=== PATIENT | female | born 1940 | race Two or more races ===

== ENCOUNTER 2016-11-19 21:32 | Inpatient (IN) | payer MEDICARE, MEDICAID ==
[~2016-11-19] VITALS: Ht 157.5 cm; Wt 49.0 kg
--- NOTE | 2016-11-19 21:36 | NUR ---
75 YO FEMALE BB RA FROM HOME. PT IS ALERT X 3, C/O "COLON" PAIN. PT STATES SHE HAS NOT HAD A BM SINCE 11/07. PT DS TO ER BED, PT GOWNED, PLACED ONC ARDIAC MONITOR. SKIN WARM AND DRY, RR EVEN AND UNLABORED. NOTED UROSTOMY BAG, PT UNABLE TO STATES WHY SHE HAS IT IN. AWAITING ORDERS FROM PROVIDER, WILL CONTNUE TO MONITOR
--- NOTE | 2016-11-19 21:50 | NUR ---
PT IS NOTED TO BE TACHYCAREDIC IN THE 110'S. NOTIFIED
[2016-11-19] MEDS ORDERED: HYDROMORPHONE INJ 2 MG/ML DISP.SYRIN ONE ×2 (22:06→23:24)
[2016-11-19] MEDS ORDERED: ONDANSETRON HCL/PF 4 MG/2 ML VIAL ONE (22:06)
[2016-11-19] MEDS ORDERED: ONDANSETRON HCL/PF 4 MG/2 ML VIAL IVP ONE (22:30)
[2016-11-19] MEDS ORDERED: HYDROMORPHONE INJ 2 MG/ML DISP.SYRIN IV ONE (22:30)
--- NOTE | 2016-11-19 22:37 | NUR ---
22G LEFT HAND IV STARTED, BLOOD SAMPLE OBTAINED AND SENT TO LAB. MEDICATED PT ORDERED
[2016-11-19 22:40] LABS: BASOPHILS # (AUTO) 0.1 /CMM (0.0-0.2); BASOPHILS % (AUTO) 0.4 % (0.0-2.0); EOSINOPHILS # (AUTO) 0.4 /CMM (0.0-0.7); EOSINOPHILS % (AUTO) 2.2 % (0.0-6.0); HEMATOCRIT 41 % (33-45); HEMOGLOBIN 12.8 g/dL (11.5-14.8); LYMPHOCYTES % (AUTO) 10.4 % (20.0-44.0); MEAN CORPUSCULAR HEMOGLOBIN 25 PG (26.0-33.0); MEAN CORPUSCULAR HGB CONC 32 g/dl (31.0-36.0); MEAN CORPUSCULAR VOLUME 79 fL (82-100); MONOCYTES # (AUTO) 0.6 /CMM (0.1-1.30); MONOCYTES % (AUTO) 2.9 % (2.0-12.0); NEUTROPHILS # (AUTO) 16.6 /CMM (1.8-8.9); NEUTROPHILS % (AUTO) 84.1 % (43.0-81.0); PLATELET COUNT (AUTO) 328 /CMM (150-450); RDW COEFFICIENT OF VARIATION 17.5 (11.5-15.0); RED BLOOD CELL COUNT(AUTO) 5.14 MIL/uL (4.0-5.2); WHITE BLOOD COUNT (AUTO) 19.8 K/uL (4.3-11.0)
--- NOTE | 2016-11-19 23:00 | NUR ---
CALLED NURSING CLINICAL ADMINISTRATIVE COORDINATOR FOR M/S BED
[2016-11-19 23:09] LABS: APPEARANCE,URINE CLOUDY (CLEAR); BILIRUBIN,URINE NEGATIVE (NEGATIVE); BLOOD, URINE 1+ Ery/uL (NEGATIVE); COLOR,URINE YELLOW (YELLOW); KETONES,URINE NEGATIVE (NEGATIVE); LEUKOCYTE ESTERASE ,URINE 3+ (NEGATIVE); NITRITE, URINE POSITIVE (NEGATIVE); PROTEIN,URINE TRACE mg/dl (NEGATIVE); UGLUCOSE NEGATIVE (NEGATIVE); UROBILINOGEN,URINE 0.2 EU/dL (0.2)
[2016-11-19] MEDS ORDERED: HYDR-548 PO (23:15)
[2016-11-19] MEDS ORDERED: GABA-534 PO (23:15)
[2016-11-19] MEDS ORDERED: ASCO500C16 PO (23:15)
[2016-11-19] MEDS ORDERED: ZOLP10TA6 PO (23:15)
[2016-11-19] MEDS ORDERED: FURO-145 PO (23:15)
[2016-11-19] MEDS ORDERED: PANT40TA4 PO (23:15)
[2016-11-19] MEDS ORDERED: MIRT15TA7 PO (23:15)
[2016-11-19 23:16] LABS: BACTERIA,URINE 3+ /HPF (None Seen); SQUAMOUS EPITHELIAL CELL,UR Rare /HPF (None Seen); WBC,URINE 51-80 /HPF (0-3)
[2016-11-19 23:17] LABS: CALCIUM OXALATE CRYSTALS,UR Few /HPF (None Seen); URINE AMORPHOUS URATE Moderate /HPF (None Seen)
[2016-11-19 23:18] LABS: CARBON DIOXIDE 33 mmol/L (21-32); CHLORIDE 102 mmol/L (98-107); CREATININE 0.6 mg/dL (0.6-1.3); GLUCOSE 111 mg/dL (74-106); POTASSIUM 3.9 mmol/L (3.5-5.1); SODIUM SERUM 140 mmol/L (136-145); UREA NITROGEN, BLOOD 11 mg/dL (7-18)
--- NOTE | 2016-11-19 23:19 | NUR ---
LOC SNOWDEN AT BED SIDE FOR ZEKEAL
[2016-11-19 23:23] LABS: ALANINE AMINOTRANSFERASE 12 U/L (12-78); ALBUMIN 2.9 g/dL (3.4-5.0); ALKALINE PHOSPHATASE 121 U/L (46-116); ASPARTATE AMINOTRANSFERASE 23 U/L (15-37); BILIRUBIN,DIRECT 0.1 mg/dL (0.0-0.2); BILIRUBIN,TOTAL 0.2 mg/dL (0.2-1.0); LIPASE 155 U/L (73-393)
[2016-11-19 23:30] LABS: INR 3.79 (0.87-1.13); PROTHROMBIN TIME 44.1 SECS (9.5-12.7)
[2016-11-20] MEDS ORDERED: ENOXAPARIN SODIUM 40 MG/0.4 ML DISP.SYRIN SQ SCH
[2016-11-20] MEDS ORDERED: ACETAMINOPHEN 325 MG TABLET PO PRN
[2016-11-20] MEDS ORDERED: MAGNESIUM HYDROXIDE 30 ML UDC PO PRN
[2016-11-20] MEDS ORDERED: Z GUARD REMEDY 2 OZ OINT TP PRN
[2016-11-20] MEDS ORDERED: CEFTRIAXONE 1 G in IV D5W 50 ML IV ONE ×2
[2016-11-20] MEDS ORDERED: ONDANSETRON HCL/PF 4 MG/2 ML VIAL IVP PRN
[2016-11-20] MEDS ORDERED: MAG HYDROX/AL HYDROX/SIMETH 30 ML UDC PO PRN
[2016-11-20] MEDS ORDERED: HYDROMORPHONE 1 MG/1 ML DISP.SYRIN IV ONE
[2016-11-20] MEDS ORDERED: HYDROCODONE/APAP 5/325MG 1 EACH TABLET PO PRN
[2016-11-20] MEDS ORDERED: IV SET PRIMARY PUMP SET 1 EA INFUS.SET MC ONE ×2 (00:21→04:56)
[2016-11-20] MEDS ORDERED: CEFTRIAXONE 1GM BAG (ER ONLY) 50 ML IV ONE (00:21)
[2016-11-20 00:46] VITALS: BP 105/67
--- NOTE | 2016-11-20 00:46 | NUR ---
SPECIMEN PREPARATION ASSISTANT INITIAL NOTES PT WAS BROUGHT TO THE FLOOR FROM THE ER VIA GURNEY. PT IS A/O X4, ABLE TO COMMUNICATE NEEDS, DENIES ANY PAIN. ON NC 2.5L SATING AT 98%. NO SIGNS OF DISTRESS OR SOB. IV ACCESS ON LEFT MIDDLE FINGER #20. UROSTOMY BAD ON RIGHT SIDE. PT STATES SHE HAS BEEN BED BOUND FOR 3 YRS, IS ABLE TO FEED HERSELF. BED IS IN LOW AND LOCKED POSITION, CALL LIGHT WITHIN REACH. WILL CONTINUE TO MONITOR.
[2016-11-20] MEDS ORDERED: MINERAL OIL 133 ML (PYXIS) 1 EA ENEMA RC ONE ×4 (01:00→21:00)
--- NOTE | 2016-11-20 01:20 | NUR ---
SLEEPING AID PT STATED THAT HAS NOT BEEN ABLE TO SLEEP AND REQUESTED A SLEEPING AID. AMBIEN WAS ADMINISTERED.
[2016-11-20] MEDS ORDERED: ZOLPIDEM TARTRATE 5 MG TABLET ONE (01:32)
[2016-11-20] MEDS ORDERED: ENOXAPARIN SODIUM 40 MG/0.4 ML DISP.SYRIN SQ ONE (01:32)
--- NOTE | 2016-11-20 01:40 | NUR ---
WOUND CARE SACRAL WOUND PRESSURE ULCERS, CLEANSED WITH NS, PAT DRY, APPLIED MEPILEX AND OFFLOADED. PICTURES WERE TAKEN AND PLACED IN CHART
[2016-11-20] MEDS: ZOLPIDEM TARTRATE 5 MG TABLET PO PRN ×2 (01:42→22:26)
[2016-11-20 04:31] VITALS: BP 120/69
[2016-11-20] MEDS ORDERED: IV NS 0.9% 1,000 ML ONE (04:56)
[2016-11-20] MEDS: IV NS 0.9% 1,000 ML IV PRN (05:16)
--- NOTE | 2016-11-20 05:30 | NUR ---
ENEMA ENEMA WAS ATTEMPTED. PT WAS UNABLE TO HOLD ENEMA IN. WILL CONTACT MD FOR ALTERNATIVE
--- NOTE | 2016-11-20 06:43 | NUR ---
DAUGHTER CALLED. SHE WAS REQUESTING AN UPDATED AND WOULD LIKE TO BE UPDATED WITH PLAN OF CARE. OVIDIO FREY [phone]
--- NOTE | 2016-11-20 06:44 | NUR ---
SUPERVISOR GRIPS CLOSING NOTES PT IS IN BED SLEEPING, BREATHING IS EVEN AND UNLABORED. WOUNDS WERE REDRESSED POST ENEMA. PT IS ON 2.5L O2 SATING AT 98%. BED IS IN LOW AND LOCKED POSITION, CALL LIGHT IS WITHIN REACH. AWAITING CONSULTS WILL ENDORSE TO DAY SHIFT.
[2016-11-20 07:03] LABS: BASOPHILS % (AUTO) 0.4 % (0.0-2.0); EOSINOPHILS # (AUTO) 0.3 /CMM (0.0-0.7); EOSINOPHILS % (AUTO) 2.4 % (0.0-6.0); HEMATOCRIT 37 % (33-45); HEMOGLOBIN 11.9 g/dL (11.5-14.8); LYMPHOCYTES # (AUTO) 2.7 /CMM (0.8-4.8); LYMPHOCYTES % (AUTO) 19.6 % (20.0-44.0); MEAN CORPUSCULAR HEMOGLOBIN 26 PG (26.0-33.0); MEAN CORPUSCULAR HGB CONC 32 g/dl (31.0-36.0); MEAN CORPUSCULAR VOLUME 80 fL (82-100); MONOCYTES # (AUTO) 0.8 /CMM (0.1-1.30); MONOCYTES % (AUTO) 6.2 % (2.0-12.0); NEUTROPHILS # (AUTO) 9.8 /CMM (1.8-8.9); NEUTROPHILS % (AUTO) 71.4 % (43.0-81.0); PLATELET COUNT (AUTO) 297 /CMM (150-450); RDW COEFFICIENT OF VARIATION 17.5 (11.5-15.0); RED BLOOD CELL COUNT(AUTO) 4.66 MIL/uL (4.0-5.2); WHITE BLOOD COUNT (AUTO) 13.7 K/uL (4.3-11.0)
[2016-11-20 07:22] LABS: CALCIUM, SERUM 8.9 mg/dL (8.5-10.1); CARBON DIOXIDE 34 mmol/L (21-32); CHLORIDE 102 mmol/L (98-107); CREATININE 0.6 mg/dL (0.6-1.3); GLUCOSE 104 mg/dL (74-106); MAGNESIUM 1.8 mg/dL (1.8-2.4); PHOSPHORUS 3.6 mg/dL (2.5-4.9); SODIUM SERUM 140 mmol/L (136-145); UREA NITROGEN, BLOOD 10 mg/dL (7-18)
[2016-11-20 07:26] VITALS: BP 106/70
[2016-11-20 07:33] LABS: CHOLESTEROL 249 mg/dL (<200); HDL CHOLESTEROL 41 mg/dL (40-60); LDL 169 mg/dL (0-99); THYROID STIMULATING HORMONE 0.794 uIU/mL (0.358-3.74); TRIGLYCERIDES 235 mg/dL (30-150)
[2016-11-20 08:00] VITALS: BP 106/70
--- NOTE | 2016-11-20 08:00 | NUR ---
TELE/RN AM SHIFT INITIAL NOTES RECEIVED PT AWAKE IN BED, NO ACUTE CHANGE OF CONDITION, PT A/O X 4, DENIES ANY DISCOMFORT. ON 2.5 LITER OF O2 VIA N/C SATURATING @ 97%, LUNG SOUNDS CLEAR. ON TELE WITH SINUS RHYTHM, HR 89. PT REFUSED TO BE ASSESSES AT THIS TIME. WITH ON GOING IV INFUSION OF NS @ 75CC/HR, IV SITE PATENT WITH NO S/S OF INFECTION. PT IS COMFORTABLE AT THIS TIME. SCHEDULED AM MEDS TO BE GIVEN. CL WITHIN REACHED AND SAFETY MAINTAINED. ON GOING MONITORING.
[2016-11-20 08:20] LABS: INR 3.52 (0.87-1.13); PROTHROMBIN TIME 39.1 SECS (9.5-12.7)
[2016-11-20] MEDS ORDERED: SECONDARY IV SET 1 EA INFUS.SET MC ONE (09:01)
[2016-11-20] MEDS: PANTOPRAZOLE 40 MG TABLET.DR PO SCH (09:10)
[2016-11-20] MEDS: CEFTRIAXONE 1 G in IV D5W 50 ML IV SCH (09:10)
[2016-11-20] MEDS: ASCORBIC ACID 500 MG TABLET PO SCH (09:10)
[2016-11-20] MEDS: FUROSEMIDE 20 MG TABLET PO SCH (09:10)
[2016-11-20] MEDS: GABAPENTIN 300 MG CAPSULE PO SCH ×3 (09:10→17:48)
--- NOTE | 2016-11-20 10:30 | NUR ---
TELE/RN ROUNDS - DR. SPIVEY PT SEEN & EXAMINED BY DR. SPIVEY. NO NEW ORDERS RECEIVED AT THIS TIME. MONITORING CONTINUED.
--- NOTE | 2016-11-20 11:50 | NUR ---
WOUND CARE CONSULT: SPOKE WITH PT'S RN WHO STATED THAT ALL SKIN AND WOUND ORDERS TO BE WRITTEN BY DR HURLEY. DEFER TO SURGICAL TEAM FOR TREATMENT PLAN. PT ON NEFTALY ISOFLEX LOW AIRLOSS BED. WILL SEE PRN.
[2016-11-20] MEDS ORDERED: MINERAL OIL/PETROL OINT 396 GM JAR TP PRN (13:30)
--- NOTE | 2016-11-20 14:54 | NUR ---
MS/RN DISIMPACTED DISIMPACTED PT WITH LARGE AMOUNTS OF HARD FORMED FECAL MATTER. PT TOLERATED PROCEDURE. PT RESTING COMFORTABLY.
[2016-11-20 16:00] VITALS: BP 137/66
--- NOTE | 2016-11-20 16:21 | NUR ---
cement storage worker met with patient at bedside. Patient was oriented to place, self, and situation. Patient stated that she lives home with [place] [address]. ([phone]). Patient would like to return home with her daughter Rafaela Mohr. ([phone]). Per patient she is and has three daughters. Patient's Phoenix Ramesh ([phone]) is patient's salesperson furs. Patient stated that she receives SSI ($641/month). Per patient, no hx of drug or alcohol abuse. Patient denied visual and auditory hallucinations. Patient denied suicidal and homicidal ideations. Per patient, no hx of psychiatric hospitalizations. executive secretary social welfare spoke to patient's daughter Rafaela Mohr. ([phone]) who confirmed that patient can return home upon discharge. cement storage worker informed patient that she is available if needed.
[2016-11-20] MEDS: MIRTAZAPINE 15 MG TABLET PO SCH (17:48)
[2016-11-20] MEDS: HYDROCODONE/APAP 10/325MG 1 EA TABLET PO PRN (17:57)
--- NOTE | 2016-11-20 18:00 | NUR ---
MS/RN ROUNDS PM CARE PROVIDED. NO ACUTE CHANGE OF CONDITION. COOLING MEASURES ON GOING. TEMP CHECKED NOW 98.4 ORAL. MONITORING CONTINUED.
--- NOTE | 2016-11-20 19:16 | NUR ---
MS/RN AM SHIFT END NOTES ALL NEEDS MET. NO ACUTE CHANGE OF CONDITION DURING THE SHIFT. PT ENDORSED TO PM NURSE TO CONTINUE CARE. CL WITHIN REACHED AND SAFETY MAINTAINED.
--- NOTE | 2016-11-20 19:30 | NUR ---
TRIAGE CLINICIAN NOTE: PATIENT RESTING IN BED, NO ACUTE DISTRESS NOTED. BREATHING EVEN AND UNLABORED, NO SOB NOTED. UROSTOMY BAG IN PLACE, EMPTY AT THIS TIME. BED LOCKED AND IN LOWEST POSITION, CALL LIGHT IN REACH. WILL CONTINUE TO MONITOR.
[2016-11-20 20:00] VITALS: BP 100/49
[2016-11-20] MEDS ORDERED: MAGNESIUM CITRATE 296 ML BOTTLE PO ONE (21:00)
--- NOTE | 2016-11-20 22:30 | NUR ---
MS RN NOTE: PATIENT REQUESTING FOR SLEEPING MEDICATIONS, AMBIEN 5MG ORAL GIVEN PER MD ORDER. WILL CONTINUE TO MONITOR.
[2016-11-21] MEDS: IV NS 0.9% 1,000 ML IV PRN (03:56)
--- NOTE | 2016-11-21 06:05 | NUR ---
MS RN NOTE: PATIENT RESTING IN BED, NO ACUTE DISTRESS NOTED. BREATHING EVEN AND UNLABORED, NO SOB NOTED. UROSTOMY BAG IN PLACE. BED LOCKED AND IN LOWEST POSITION, CALL LIGHT IN REACH. WILL ENDORSE TO DAY NURSE TO CONTINUE WITH PLAN OF CARE.
[2016-11-21 07:08] LABS: BASOPHILS # (AUTO) 0.1 /CMM (0.0-0.2); BASOPHILS % (AUTO) 0.6 % (0.0-2.0); EOSINOPHILS # (AUTO) 0.8 /CMM (0.0-0.7); EOSINOPHILS % (AUTO) 8.1 % (0.0-6.0); HEMATOCRIT 34 % (33-45); HEMOGLOBIN 10.9 g/dL (11.5-14.8); LYMPHOCYTES # (AUTO) 2.1 /CMM (0.8-4.8); LYMPHOCYTES % (AUTO) 20.8 % (20.0-44.0); MEAN CORPUSCULAR HEMOGLOBIN 26 PG (26.0-33.0); MEAN CORPUSCULAR HGB CONC 32 g/dl (31.0-36.0); MEAN CORPUSCULAR VOLUME 81 fL (82-100); MONOCYTES # (AUTO) 0.7 /CMM (0.1-1.30); MONOCYTES % (AUTO) 7.1 % (2.0-12.0); NEUTROPHILS # (AUTO) 6.5 /CMM (1.8-8.9); NEUTROPHILS % (AUTO) 63.4 % (43.0-81.0); PLATELET COUNT (AUTO) 288 /CMM (150-450); RDW COEFFICIENT OF VARIATION 17.6 (11.5-15.0); RED BLOOD CELL COUNT(AUTO) 4.21 MIL/uL (4.0-5.2); WHITE BLOOD COUNT (AUTO) 10.3 K/uL (4.3-11.0)
[2016-11-21 07:25] LABS: INR 3.09 (0.87-1.13); PROTHROMBIN TIME 35.5 SECS (9.5-12.7)
--- NOTE | 2016-11-21 07:30 | NUR ---
MS RN AM NOTES RECEIVED PT AWAKE IN BED, ORIENTEDX4, ON 2.5L O2 VIA NC, O2 SAT 98%, NOT IN ANY DISTRESS, RESPIRATION UNLABORED, DENIES ANY PAIN OR DISCOMFORT, ON GOING IV INFUSION OF NS @ 75CC/HR TO L MIDDLE FINGER, SITE CLEAR. UROSTOMY IN PLACE, SEE NURSING FLOWSHEET FOR SKIN ISSUES, ON CCHO DIET, BEDREST, CALL LIGHT WITH IN REACH, BED LOW LOCKED, SR UP. WILL CONTINUE TO MONITOR.
[2016-11-21 07:47] LABS: CALCIUM, SERUM 8.4 mg/dL (8.5-10.1); CHLORIDE 107 mmol/L (98-107); CREATININE 0.5 mg/dL (0.6-1.3); GLUCOSE 90 mg/dL (74-106); POTASSIUM 3.9 mmol/L (3.5-5.1); SODIUM SERUM 144 mmol/L (136-145); UREA NITROGEN, BLOOD 8 mg/dL (7-18)
[2016-11-21 07:53] LABS: CARBON DIOXIDE 32 mmol/L (21-32)
[2016-11-21 08:00] VITALS: BP 119/56
[2016-11-21] MEDS: PANTOPRAZOLE 40 MG TABLET.DR PO SCH (08:27)
[2016-11-21] MEDS: FUROSEMIDE 20 MG TABLET PO SCH (08:27)
[2016-11-21] MEDS: GABAPENTIN 300 MG CAPSULE PO SCH ×3 (08:27→17:21)
[2016-11-21] MEDS: ASCORBIC ACID 500 MG TABLET PO SCH (08:27)
--- NOTE | 2016-11-21 09:30 | NUR ---
MS RN NOTE ADMINISTERED DUE MEDS.
--- NOTE | 2016-11-21 09:41 | NUR ---
MS RN NOTES STARTED ROCEPHIN IV.
[2016-11-21] MEDS: CEFTRIAXONE 1 G in IV D5W 50 ML IV SCH (09:54)
[2016-11-21] MEDS ORDERED: HYDROGEL DRESSING 90 GM TUBE TP PRN (10:30)
[2016-11-21] MEDS: HYDROGEL DRESSING 90 GM TUBE TP SCH (10:43)
[2016-11-21] MEDS: HYDROCODONE/APAP 10/325MG 1 EA TABLET PO PRN ×2 (12:37→20:49)
[2016-11-21 16:00] VITALS: BP 104/57
[2016-11-21] MEDS: MIRTAZAPINE 15 MG TABLET PO SCH (17:21)
[2016-11-21 18:00] VITALS: BP 104/57
--- NOTE | 2016-11-21 18:24 | NUR ---
MS RN CLOSING NOTES PT IN BED, AWAKE, ORIENTEDX4, ON 2.5L O2 VIA NC, O2 SAT 96%, NOT IN ANY DISTRESS, RESPIRATION UNLABORED, DENIES ANY PAIN OR DISCOMFORT, PICC LINE NURSE AT BEDSIDE ONGOING MIDLINE INSERTION, IV INFUSION OF NS @ 75CC/HR ONCE MIDLINE AVAILABLE, UROSTOMY IN PLACE, 500 ML OUTPUT. ON CCHO DIET, BEDREST, CALL LIGHT WITH IN REACH, BED LOW LOCKED, SR UP. TURNED AND REPOSITIONED. ALL NEEDS MET. NO OTHER SIGNIFICANT CHANGE IN CONDITION. WILL ENDORSE TO NEXT SHIFT FOR AMADOR.
--- NOTE | 2016-11-21 19:30 | NUR ---
RN NOTE; RECEIVED PT IN BED W/ FAMILY AT THE BED SIDE. BREATHING EVENLY. NO SOB. NAD. NO COUGH. SKIN WARM AND DRY, PT WAS CONNECTED TO IVF HYDRATIONS. NEEDS ATTENDED. PT REPORTED ALREADY HAD A BM AND RELIEF OF CONSTIPATIONS. CALL LIGHT WITHIN REACH. WILL CONT TO MONITOR .
[2016-11-21 20:00] VITALS: BP 105/50
[2016-11-21] MEDS ORDERED: KEY,NONCONTROL,TO KEEP IN PYXI 1 EA MC ONE (20:08)
[2016-11-21] MEDS: MUPIROCIN OINT 2% 22 GM TUBE SCH (20:49)
--- NOTE | 2016-11-21 20:50 | NUR ---
[id number] GIVEN ORDERED PER PT'S REQUEST FOR SEVERE GEN. BODY PAIN. WILL CONT TO MONITOR
--- NOTE | 2016-11-21 22:00 | NUR ---
UROSTOMY BAG WAS REPLACED DUE TO LEAKING . WILL CONT TO MONITOR
[2016-11-21] MEDS: ZOLPIDEM TARTRATE 5 MG TABLET PO PRN (22:15)
--- NOTE | 2016-11-21 22:15 | NUR ---
DELIAIEN GIVEN ORDERED PER PT'S REQUEST FOR C/O INSOMNIA, WILL CONT TO MONITOR
--- NOTE | 2016-11-22 00:45 | NUR ---
PT IS REQUESTING A REPEATED DOSE OF AMBIEN FOR INSOMNIA. DR. EVANGELISTA ON THE FLOOR MADE AWARE W/ A NEW ORDER FOR A SECOND DOSE OF AMBIEN 5MG . NEW ORDER NOTED .
--- NOTE | 2016-11-22 00:52 | NUR ---
REPEATED DOSE OF AMBIEN GIVEN ORDERED PER PT'S REQUEST ORDERED. WILL CONT TO MONITOR
[2016-11-22] MEDS ORDERED: ZOLPIDEM TARTRATE 5 MG TABLET PO ONE (01:00)
--- NOTE | 2016-11-22 06:51 | NUR ---
RN NOTE; PT IN BED AWAKE AND ALERT. BREATHING EVENLY. NO SOB. NAD. SKIN WARM AND DRY. NO C/O PAIN OR DISCOMFORT AT THIS TIME. NO ABD PAIN. ON ONGOING UVF HYDRATION LIZET WELL. NEEDS ATTENDED .ASSISTED W/ ADLS. CALL LIGHT WITHIN REACH .WILL CONT TO MONITOR AND WILL ENDORSE TO AM SHIFT FOR AMADOR,
--- NOTE | 2016-11-22 07:30 | NUR ---
RN NOTES RECEIVED PATIENT IN BED SLEEPING, AROUSES EASILY. ALERT AND ORIENTED X3. RESPIRATIONS EVEN AND UNLABORED. NO ACUTE DISTRESS, NO SOB NOTED. IV SITE INTACT AND PATENT. KEPT PATIENT SAFE. BED IN LOWEST POSITION, SIDERAILS UP X2. CALL LIGHT WITHIN REACH. WILL CONTINUE TO MONITOR ACCORDINGLY.
[2016-11-22 08:00] VITALS: BP_SYST 128; BP_DIAS 69; BP_DIAS 70
[2016-11-22] MEDS: ASCORBIC ACID 500 MG TABLET PO SCH (09:05)
[2016-11-22] MEDS: FUROSEMIDE 20 MG TABLET PO SCH (09:05)
[2016-11-22] MEDS: PANTOPRAZOLE 40 MG TABLET.DR PO SCH (09:05)
[2016-11-22] MEDS: GABAPENTIN 300 MG CAPSULE PO SCH ×3 (09:06→18:17)
[2016-11-22] MEDS: MUPIROCIN OINT 2% 22 GM TUBE SCH ×2 (09:07→20:49)
[2016-11-22] MEDS: HYDROGEL DRESSING 90 GM TUBE TP SCH (09:11)
[2016-11-22] MEDS: CEFTRIAXONE 1 G in IV D5W 50 ML IV SCH (10:13)
[2016-11-22] MEDS: HYDROCODONE/APAP 10/325MG 1 EA TABLET PO PRN ×3 (13:40→22:55)
[2016-11-22 16:00] VITALS: BP 107/54
[2016-11-22] MEDS: MIRTAZAPINE 15 MG TABLET PO SCH (18:17)
--- NOTE | 2016-11-22 19:00 | NUR ---
RN NOTES PATIENT IN BED RESTING. NO CHANGE OF CONDITION, NO ACUTE DISTRESS, NO SOB NOTED. DENIES PAIN OR DISCOMFORT. ALL NEEDS ATTENDED AND PROVIDED. KEPT PATIENT SAFE. BED IN LOWEST POSITION, SIDERAILS UP X2, CALL LIGHT WITHIN REACH. ENDORSED TO WOMEN'S MINISTRY DIRECTOR RN FOR CONTINUITY OF CARE.
--- NOTE | 2016-11-22 19:30 | NUR ---
RN NOTE; RECEIVED PT IN BED W/ FAMILY aT THE BED SIDE. BREATHING EVENLY. NO SOB. NO ACUTE DISTRESS. W/ C/O CHRONIC GENERALIZED BODY PAIN . NO ABD PAIN. ON ONGOING IVF HYDRATION. NEEDS ATTENDED .REPOSITIONED THE PT. BED LOW LOCKED. CALL LIGHT WITHIN REACH. WILL CONT TO MONITOR
[2016-11-22 20:00] VITALS: BP 107/61
[2016-11-22] MEDS: ZOLPIDEM TARTRATE 5 MG TABLET PO PRN (22:55)
--- NOTE | 2016-11-22 23:00 | NUR ---
NORCO 10 GIVEN ORDERED PER PT'S REQUEST FOR C/O GENERALIZED BODY PAIN. ALSO AMBIEN 5MG GIVEN ORDERED FOR C/O INSOMNIA. RISK VS BENEFITS OF TAKING THE TWO MEDICATIONS TOGETHER AND AT THE SAME TIME GIVEN TO THE PT . PT WAS ASSISTED W/ REPOSITIONING AND CALM AND COMFORTABLE ENVIRONMENT WAS PROVIDED FOR THE PT. WILL CONT TO MONITOR,
--- NOTE | 2016-11-23 06:22 | NUR ---
RN NOTE; PT IN BED SLEEPING, AROUSES EASILY. BREATHING EVENLY. NO SOB, NAD. NO S/S OR C/O PAIN OR DISCOMFORT. NO ACUTE EVENT DURING THE NIGHT. REMAINED STABLE. NEEDS ATTENDED. BED LOW LOCKED. CALL LIGHT WITHIN REACH. WILL CONT TO MONITOR AND WILL ENDORSE TO AM SHIFT FOR AMADOR,
--- NOTE | 2016-11-23 07:50 | NUR ---
MS RN OPENING NOTE PATIENT IS ALERT AND ORIENTED x4. NO PAIN AT THIS TIME. NO SOB OR DISTRESS NOTED. CALL LIGHT WITHIN REACH. SAFETY MEASURES IMPLEMENTED. IV INTACT AND PATENT NO REDNESS OR SWELLING NOTED. ABLE TO COMMUNICATE NEEDS. ON CONTACT ISOLATION FOR MRSA OF NARES. POSSIBLE DISCHARGE TODAY, WILL FOLLOW UP WITH CASE MANAGEMENT. WILL CONTINUE TO MONITOR
[2016-11-23 08:00] VITALS: BP 132/79
[2016-11-23] MEDS: ASCORBIC ACID 500 MG TABLET PO SCH (08:32)
[2016-11-23] MEDS: FUROSEMIDE 20 MG TABLET PO SCH (08:32)
[2016-11-23] MEDS: PANTOPRAZOLE 40 MG TABLET.DR PO SCH (08:32)
[2016-11-23] MEDS: GABAPENTIN 300 MG CAPSULE PO SCH ×3 (08:32→17:00)
[2016-11-23] MEDS: HYDROGEL DRESSING 90 GM TUBE TP SCH (08:33)
[2016-11-23] MEDS: MUPIROCIN OINT 2% 22 GM TUBE SCH (08:33)
[2016-11-23] MEDS: HYDROCODONE/APAP 10/325MG 1 EA TABLET PO PRN ×2 (08:45→13:53)
[2016-11-23] MEDS ORDERED: LEVO500T15 PO (10:16)
[2016-11-23] MEDS ORDERED: WARF2TAB6 PO (10:21)
[2016-11-23] MEDS: CEFTRIAXONE 1 G in IV D5W 50 ML IV SCH (11:14)
[2016-11-23] MEDS: IV NS 0.9% 1,000 ML IV PRN (11:24)
[2016-11-23 16:00] VITALS: BP 118/68
--- NOTE | 2016-11-23 16:16 | NUR ---
MS RN NOTE GAVE REPORT TO ISIDRA CRUZ ANDROID IOS DEVELOPER AT [facility]. AWAITING FOR TRANSPORT
--- NOTE | 2016-11-23 18:00 | NUR ---
MS ADOBE MAKER NOTE PATIENT IS ALERT AND ORIENTED x4. NO PAIN AT THIS TIME. NO SOB OR DISTRESS NOTED. CALL LIGHT WITHIN REACH AT ALL TIMES. SAFETY MEASURES IMPLEMENTED. ABLE TO COMMUNICATE NEEDS. IV REMOVED, SKIN INTACT. ALL WOUND PICTURES TAKEN AND DOCUMENTED. GAVE REPORT TO NANCY AT [facility]. GAVE PATIENT, RN MOLD BURNER AND PATIENT FAMILY DISCHARGE INSTRUCTIONS, ALL GAVE VERBAL READ BACK DEMONSTRATION. ALL BELONGINGS WITH DAUGHTER, ELEANOR AND ALEAH. LEFT VIA AMBULANCE WITH TWO SENIOR ENERGY CONSULTANT
== END 2016-11-23 17:45 | DRG 871 ==
LOC: ER 21:33 → TELE 11-20 00:09 → MED 11-20 11:00
PROVIDERS: ADMIT Nurse Practitioner Acute Care; ATTEND Nurse Practitioner Acute Care
PROC: 05H633Z Insertion of Infusion Device into Left Subclavian Vein, Percutaneous Approach (ICD-10-PCS; principal; 2016-11-21)
DX: A41.9 Sepsis, unspecified organism (principal); L89.153 Pressure ulcer of sacral region, stage 3; E43 Unspecified severe protein-calorie malnutrition; D68.59 Other primary thrombophilia; N39.0 Urinary tract infection, site not specified; G95.89 Other specified diseases of spinal cord; Z68.1 Body mass index [BMI] 19.9 or less, adult; B96.1 Klebsiella pneumoniae [K. pneumoniae] as the cause of diseases classified elsewhere; F32.9 Major depressive disorder, single episode, unspecified; G89.4 Chronic pain syndrome; I10 Essential (primary) hypertension; Z79.01 Long term (current) use of anticoagulants; Z86.718 Personal history of other venous thrombosis and embolism; Z74.01 Bed confinement status; M81.0 Age-related osteoporosis without current pathological fracture; Z90.6 Acquired absence of other parts of urinary tract; Z93.6 Other artificial openings of urinary tract status; E88.09 Other disorders of plasma-protein metabolism, not elsewhere classified; J84.112 Idiopathic pulmonary fibrosis; Z99.81 Dependence on supplemental oxygen; K52.89 Other specified noninfective gastroenteritis and colitis; L98.8 Other specified disorders of the skin and subcutaneous tissue; Z79.891 Long term (current) use of opiate analgesic; L30.4 Erythema intertrigo; K59.03 Drug induced constipation; T40.605A Adverse effect of unspecified narcotics, initial encounter; Y92.009 Unspecified place in unspecified non-institutional (private) residence as the place of occurrence of the external cause
CPT/HCPCS: 36415; 71010-TC; 72128-TC; 80048-TC; 80061-TC; 80076-TC; 81000-TC; 83605-TC; 83690-TC; 83735-TC; 84100-TC; 84443-TC; 85025-TC; 85610-TC; 85730-TC; 87040-TC; 87081-TC; 87086-TC; 87186-TC; 94799-TC; 97001-TC; A4606; A6248; A6253; A6402; J0696; J1170; J1650; J2405; J7030; J7060; Z7610

== ENCOUNTER 2017-05-15 12:24 | Inpatient (IN) | payer MEDICARE, MEDICAID ==
[~2017-05-15] VITALS: Ht 157.5 cm; Wt 55.3 kg
[~2017-05-15 12:24] MED LIST: ASCO500C16 PO; FURO-145 PO; GABA-534 PO; HYDR-548 PO; LEVO500T75 PO; MIRT15TA7 PO; PANT40TA4 PO; WARF2TAB6 PO; ZOLP10TA6 PO
--- NOTE | 2017-05-15 12:30 | NUR ---
AAOX3, [id number] FROM HOME FOR SOB, O2 SAT 87% WITH NC AT HOME. RR IS SLIGHTLY LABORED. SKIN IS WARM AND DRY. PLACED ON THE MONITOR. WILL CONTINUOUSLY MONITOR THE PATIENT. AWAITING MD FOR EVAL.
[2017-05-15 13:07] LABS: BASOPHILS # (AUTO) 0.1 /CMM (0.0-0.2); BASOPHILS % (AUTO) 0.6 % (0.0-2.0); EOSINOPHILS # (AUTO) 0.9 /CMM (0.0-0.7); EOSINOPHILS % (AUTO) 6.4 % (0.0-6.0); HEMATOCRIT 36 % (33-45); HEMOGLOBIN 11.6 g/dL (11.5-14.8); LYMPHOCYTES # (AUTO) 3.2 /CMM (0.8-4.8); LYMPHOCYTES % (AUTO) 21.7 % (20.0-44.0); MEAN CORPUSCULAR HEMOGLOBIN 26 PG (26.0-33.0); MEAN CORPUSCULAR HGB CONC 32 g/dl (31.0-36.0); MEAN CORPUSCULAR VOLUME 81 fL (82-100); MONOCYTES # (AUTO) 0.5 /CMM (0.1-1.30); MONOCYTES % (AUTO) 3.7 % (2.0-12.0); NEUTROPHILS # (AUTO) 10.1 /CMM (1.8-8.9); NEUTROPHILS % (AUTO) 67.6 % (43.0-81.0); PLATELET COUNT (AUTO) 266 /CMM (150-450); RDW COEFFICIENT OF VARIATION 17.5 (11.5-15.0); RED BLOOD CELL COUNT(AUTO) 4.43 MIL/uL (4.0-5.2); WHITE BLOOD COUNT (AUTO) 14.8 K/uL (4.3-11.0)
[2017-05-15 13:16] LABS: CALCIUM, SERUM 8.4 mg/dL (8.5-10.1); CARBON DIOXIDE 30 mmol/L (21-32); CHLORIDE 108 mmol/L (98-107); CREATININE 0.5 mg/dL (0.6-1.3); GLUCOSE 114 mg/dL (74-106); POTASSIUM 3.7 mmol/L (3.5-5.1); SODIUM SERUM 142 mmol/L (136-145); UREA NITROGEN, BLOOD 11 mg/dL (7-18)
[2017-05-15 13:21] LABS: INR 0.9 (0.87-1.13)
[2017-05-15 13:24] LABS: TROPONIN I < 0.017 ng/mL (0.00-0.056)
[2017-05-15] MEDS ORDERED: CALC-883 PO (13:34)
[2017-05-15] MEDS ORDERED: CODE118S2 PO (13:34)
[2017-05-15] MEDS ORDERED: CLOT10TR PO (13:34)
[2017-05-15] MEDS ORDERED: PRED10TA PO (13:34)
[2017-05-15] MEDS ORDERED: BISA10SU8 RC (13:34)
[2017-05-15] MEDS ORDERED: ZOLP5TAB8 PO (13:34)
[2017-05-15] MEDS ORDERED: HYDR-548 PO (13:34)
[2017-05-15] MEDS ORDERED: GABA-534 PO (13:34)
[2017-05-15 13:40] LABS: ALANINE AMINOTRANSFERASE 9 U/L (12-78); ALBUMIN 2.4 g/dL (3.4-5.0); ALKALINE PHOSPHATASE 88 U/L (46-116); ASPARTATE AMINOTRANSFERASE 14 U/L (15-37); B-TYPE NATRIURETIC PEPTIDE 105 PG/ML (0-125); BILIRUBIN,TOTAL 0.3 mg/dL (0.2-1.0); TOTAL PROTEIN, SERUM 6.5 g/dL (6.4-8.2)
[2017-05-15] MEDS ORDERED: PIPERACILLIN /TAZOBACTAM 3.375 G in IV D5W 50 ML IV ONE (14:30)
[2017-05-15] MEDS ORDERED: LEVOFLOXACIN 750 MG /D5W 150ML 150 ML IV ONE ×2 (14:30→14:47)
--- NOTE | 2017-05-15 15:15 | NUR ---
IT SYSTEMS ANALYST CONSULTANTFASHION CONSULTANT SELLING NOTE PATIENT IS ALERT AND ORIENTED x3. NO PAIN AT THIS TIME. NO SOB OR DISTRESS NOTED. CALL LIGHT WITHIN REACH. SAFETY MEASURES IMPLEMENTED. ABLE TO COMMUNICATE NEEDS. SKIN ISSUES PRESENT ON BILATERAL BREAST REDNESS, AND SACRAL WOUND EXCORIATION/PARTIAL THICKNESS LOSS. HAS IV ON RIGHT FOREARM 22G AND GARCIA MIDLINE INTACT AND PATENT NO REDNESS OR SWELLING NOTED. NO FLUIDS RUNNING AT THIS TIME. BROUGHT INTO ER FOR SOB FOR MORE THAN 3 DAYS, PATIENT IS USUALLY ON OXYGEN AT HOME. RULING OUT PNA. WILL GIVE PNA VACCINE PER PATIENT REQUEST. WILL CONTINUE TO MONITOR
[2017-05-15 15:30] VITALS: BP 99/62
[2017-05-15] MEDS ORDERED: ONDANSETRON HCL/PF 4 MG/2 ML VIAL IVP PRN (15:30)
[2017-05-15] MEDS ORDERED: ACETAMINOPHEN 325 MG TABLET PO PRN (15:30)
[2017-05-15] MEDS ORDERED: MAGNESIUM HYDROXIDE 30 ML UDC PO PRN (15:30)
[2017-05-15] MEDS ORDERED: Z GUARD REMEDY 2 OZ OINT TP PRN (15:30)
[2017-05-15] MEDS ORDERED: HYDROCODONE/APAP 5/325MG 1 EACH TABLET PO PRN (15:30)
[2017-05-15] MEDS ORDERED: PNEUMOCOCCAL 23-VAL P-SAC VAC 0.5 ML VIAL SQ ONE (16:30)
[2017-05-15] MEDS: ENOXAPARIN SODIUM 40 MG/0.4 ML DISP.SYRIN SQ SCH (16:56)
--- NOTE | 2017-05-15 18:45 | NUR ---
RN NOTE UNABLE TO OBTAIN BLOOD SPECIMEN FOR LAB AT THIS TIME. WILL ENDORSE TO HAND MOUNTER NURSE
--- NOTE | 2017-05-15 18:53 | NUR ---
MANAGER BUSINESS PLANNING CLOSING NOTE PATIENT IS ALERT AND ORIENTED x3. NO PAIN AT THIS TIME. NO SOB OR DISTRESS NOTED ON 2L/MIN OF OXYGEN VIA NASAL CANNULA, TOLERATING WELL. CALL LIGHT WITHIN REACH AT ALL TIMES. SAFETY MEASURES IMPLEMENTED. ABLE TO COMMUNICATE NEEDS. IV INTACT AND PATENT NO REDNESS OR SWELLING NOTED, MIDLINE INTACT AND PATENT NO REDNESS OR SWELLING NOTED. NO FLUIDS RUNNING AT THIS TIME. PNEUMONIA VACCINE GIVEN THIS AFTERNOON. TELE MONITOR-SR 94. HAS UROSTOMY BAG PRESENT. LABS IN THE MORNING. POSSIBLE TRANSFER TO [facility] TOMORROW. WILL ENDORSE TO ROLL MILL OPERATOR NURSE FOR AMADOR
[2017-05-15] MEDS ORDERED: BISACODYL SUPP (10 MG) 10 MG/SUPP.RECT SUPP.RECT RC PRN (19:00)
[2017-05-15] MEDS ORDERED: HYDROCODONE/APAP 10/325MG 1 EA TABLET PO PRN (19:00)
[2017-05-15] MEDS ORDERED: CODEINE/PROMETHAZINE HCL 5 ML UDC PO PRN (19:00)
[2017-05-15] MEDS ORDERED: ALBUTEROL FS 2.5 MG/3 ML VIAL.NEB NEB PRN (19:30)
[2017-05-15 20:00] VITALS: BP 108/53
--- NOTE | 2017-05-15 20:00 | NUR ---
TELE/RN NOTES PATIETN IN BED, HOB ELEVATED, FAMILY WAS AT BED SIDE, ALERT, OREINTED X3. ABLE TO VERBALIZE NEEDS, REPORTED PAIN IN HEAD AND GENERALIZED MUSCLE PER FAMILY TO GIVE NORCO 5-325 MG PO. SKIN WARM TO TOUCH, WITH UROLOGY BAG, EMPTIED AT 700 ML. DISCUSSED CARE WITH FAMILY AND AM RN GAVE REPORT FOR AMADOR. WILL CONTINUE TO MONITOR.LAB DRAW BLOOD. PATIENT PUILSE AT 108, WILL CONTINUE TO MONITOR.
[2017-05-15] MEDS: CLOTRIMAZOLE 10 MG TROCHE MM SCH (21:00)
[2017-05-15] MEDS: GABAPENTIN 300 MG CAPSULE PO SCH (21:52)
[2017-05-15] MEDS: MIRTAZAPINE 15 MG TABLET PO SCH (21:52)
[2017-05-15] MEDS: ZOLPIDEM TARTRATE 5 MG TABLET PO PRN (22:39)
[2017-05-16] VITALS: BP 90/49
[2017-05-16] MEDS ORDERED: PIPERACILLIN /TAZOBACTAM 4.5 G in IV D5W 50 ML IV SCH ×2
[2017-05-16] MEDS: ZOSYN IVPB 3.375 G in IV D5W 50ml IV SCH ×4 (00:16→18:14)
[2017-05-16 04:00] VITALS: BP 105/61
[2017-05-16] MEDS: CLOTRIMAZOLE 10 MG TROCHE MM SCH ×5 (05:52→20:22)
--- NOTE | 2017-05-16 07:01 | NUR ---
TELE/RN NOTES PATIENT IN BED, ABLE TO SLEEP DURING THE NIGHT, KEPT COMFORTABLE. RESPIRATIONS EVEN AND UNLABORED, SKIN WARM TO TOUCH, BED IN LOCK POSITION, BED ALARM WITHIN REACH, WILL ENDORSE TO AM RN FOR AMADOR.
--- NOTE | 2017-05-16 07:30 | NUR ---
RN MS NOTES PT IN BED, AWAKE, ALERT AND ORIENTED, DENIES PAIN, BREATHING PATTERN NORMAL AND NOT LABORED, CALL LIGHT WITHIN REACH, TURNED AND REPOSITIONED FOR COMFORT AND CIRCULATION, KEPT KEY ACCOUNT DIRECTOR BED.
[2017-05-16 08:00] VITALS: BP 131/70
[2017-05-16 08:12] LABS: BASOPHILS # (AUTO) 0.1 /CMM (0.0-0.2); BASOPHILS % (AUTO) 0.7 % (0.0-2.0); EOSINOPHILS # (AUTO) 0.8 /CMM (0.0-0.7); EOSINOPHILS % (AUTO) 6.4 % (0.0-6.0); HEMATOCRIT 35 % (33-45); HEMOGLOBIN 11.2 g/dL (11.5-14.8); LYMPHOCYTES # (AUTO) 1.9 /CMM (0.8-4.8); LYMPHOCYTES % (AUTO) 15.1 % (20.0-44.0); MEAN CORPUSCULAR HEMOGLOBIN 27 PG (26.0-33.0); MEAN CORPUSCULAR HGB CONC 32 g/dl (31.0-36.0); MEAN CORPUSCULAR VOLUME 83 fL (82-100); MONOCYTES # (AUTO) 0.9 /CMM (0.1-1.30); MONOCYTES % (AUTO) 6.8 % (2.0-12.0); PLATELET COUNT (AUTO) 235 /CMM (150-450); RDW COEFFICIENT OF VARIATION 18.7 (11.5-15.0); RED BLOOD CELL COUNT(AUTO) 4.19 MIL/uL (4.0-5.2); WHITE BLOOD COUNT (AUTO) 12.7 K/uL (4.3-11.0)
[2017-05-16 08:17] LABS: CALCIUM, SERUM 8.6 mg/dL (8.5-10.1); CARBON DIOXIDE 29 mmol/L (21-32); CHLORIDE 109 mmol/L (98-107); CREATININE 0.5 mg/dL (0.6-1.3); GLUCOSE 91 mg/dL (74-106); MAGNESIUM 1.8 mg/dL (1.8-2.4); PHOSPHORUS 3.1 mg/dL (2.5-4.9); SODIUM SERUM 144 mmol/L (136-145); UREA NITROGEN, BLOOD 11 mg/dL (7-18)
--- NOTE | 2017-05-16 08:22 | NUR ---
WOUND CARE CONSULT: PT NOT SEEN YET FOR SKIN ASSESSMENT DUE TO PT EATING AT THIS TIME. RECOMMENDATIONS MADE FOR WOUND CARE AND SKIN PROTECTION BASED ON NURSING DOCUMENTATION AND PHOTOS. PER ADMISSION PHOTO THERE IS AT LEAST PARTIAL THICKNESS WOUND TO SACRAL REGION, PRESENT ON ADMISSION. RECOMMEND LOW AIRLOSS BED. ALL SKIN PROTECTION AND WOUND RECOMMENDATIONS DISCUSSED WITH NURSING STAFF. WILL SEE PRN. LOZADA IN AGREEMENT WITH PLAN OF CARE.
[2017-05-16 08:32] LABS: CHOLESTEROL 188 mg/dL (<200); HDL CHOLESTEROL 56 mg/dL (40-60); LDL 123 mg/dL (0-99); TRIGLYCERIDES 115 mg/dL (30-150)
[2017-05-16] MEDS: GABAPENTIN 300 MG CAPSULE PO SCH ×3 (08:57→22:18)
[2017-05-16] MEDS: methylPREDNISolone SOD SUCC 125 MG/2ML VIAL IV SCH ×3 (08:57→18:08)
[2017-05-16] MEDS ORDERED: FUROSEMIDE 20 MG TABLET PO SCH (09:00)
[2017-05-16 09:38] LABS: IRON, SERUM 61 ug/dl (50-175); TOTAL IRON BINDING CAPACITY 189 ug/dl (250-450)
[2017-05-16] MEDS: HYDROGEL DRESSING 90 GM TUBE TP SCH (09:44)
[2017-05-16] MEDS: HYDROGEL DRESSING 90 GM TUBE TP PRN (09:44)
[2017-05-16 09:50] LABS: FERRITIN 89 ng/mL (8-388)
[2017-05-16] MEDS ORDERED: MENTHOL/CETYLPYRD (CEPACOL) 1 LOZ LOZENGE PO SCH (13:30)
[2017-05-16] MEDS: IPRATROPIUM NEB FS 0.5 MG/2.5 ML AMPUL.NEB NEB SCH ×2 (14:07→19:47)
[2017-05-16] MEDS: ALBUTEROL FS 2.5 MG/3 ML VIAL.NEB NEB SCH ×2 (14:07→19:47)
[2017-05-16] MEDS ORDERED: MENTHOL/CETYLPYRD (CEPACOL) 1 LOZ LOZENGE PO PRN (14:46)
[2017-05-16] MEDS: BENZONATATE 100 MG CAPSULE PO SCH ×2 (15:00→17:00)
[2017-05-16] MEDS: LEVOFLOXACIN 500 MG /D5W 100ML 500 MG in PREMIX 1 EA IV SCH (15:02)
[2017-05-16 16:00] VITALS: BP 110/62
[2017-05-16] MEDS ORDERED: DEXTROSE 50%-WATER 50 ML DISP.SYRIN IV PRN (16:30)
--- NOTE | 2017-05-16 16:30 | NUR ---
HUMAN MACHINE INTERFACE ENGINEER NOTES PT IN BED, ASLEEP, EASY TO AROUSE, NOTED TO BE MORE SLEEPY AND DROWSY, SKIN COLD AND CLAMMY, VITALS SIGNS CHECKED, VS WNL, NO SHORTNESS OF BREATH, BLOOD SUGAR CHECKED, 285, INFORMED DR. BATEMAN, ORDERS GIVEN FOR STAT LABS, MD ALSO ORDERED FOR PT TO BE TRANSFERED TO [facility] FOR CLOSER MONITORING, NOTED AND CARRIED OUT, AWAITING FOR [facility] BED, MONITORED PT CLOSELY, PT PLACED ON TELE MONITORING.
--- NOTE | 2017-05-16 17:00 | NUR ---
RN MS NOTES PM PO MEDS NOT ADMINISTERED, PT SLEEPY, RISK FOR ASPIRATION.
[2017-05-16 17:15] LABS: ABG BASE EXCESS 0.5 mmol/L; ABG OXYGEN SATURATION 96.7 % (92.0-98.5); ABG PCO2 39.7 mmHg (35.0-45.0); ABG PH 7.417 (7.350-7.450); ABG PO2 90.5 mmHg (75.0-100.0); AaDO2 62.3 mmHg; COHb 0.7 % (0.5-1.5); MetHb 0.2 % (0.0-1.5); O2Hb 95.8 % (94.0-97.0); SITE, ABG Right Radial; VENT MODE, BG NASAL CANNULA
[2017-05-16] MEDS: BLOOD SUGAR DIAGNOSTIC 1 EACH STRIP IN SCH ×2 (18:06→22:40)
--- NOTE | 2017-05-16 18:30 | NUR ---
MOTOR VEHICLES SUPERVISOR NOTES PT MORE AWAKE NOW, VERBALLY RESPONSIVE, MD UPDATED OF LAB RESULTS, DAUGHTER OVIDIO INFORMED OF MD'S NEW ORDERS, VERBALIZED UNDERSTANDING, ASSISTED IN TURNING AND REPOSITIONING, ALL NEEDS ATTENDED.
[2017-05-16] MEDS: INSULIN REGULAR, HUMAN 100 UNIT/ML 3 ML VIAL SQ PRN ×2 (18:34→22:41)
[2017-05-16 18:49] LABS: CARBON DIOXIDE 27 mmol/L (21-32); CHLORIDE 109 mmol/L (98-107); CREATININE 0.7 mg/dL (0.6-1.3); GLUCOSE 228 mg/dL (74-106); POTASSIUM 3.8 mmol/L (3.5-5.1); SODIUM SERUM 145 mmol/L (136-145); UREA NITROGEN, BLOOD 13 mg/dL (7-18)
[2017-05-16 18:57] LABS: TROPONIN I < 0.017 ng/mL (0.00-0.056)
--- NOTE | 2017-05-16 19:30 | NUR ---
RN NOTES RECEIVED PATIENT IN BED AWAKE, AO X 3, CRAIG ON RIGHT EAR, ABLE TO MAKE NEEDS KNOWN. NO ACUTE DISTRESS NOTED. DENIES ANY PAIN AT THIS TIME. NO SYMPTOMS OF HYPER/HYPOGLYCEMIA. SINUS TACH HR 110 ON MONITOR. IV SITES PATENT, INTACT; FLUSHED. UROSTOMY BAG INTACT; DRAINING CLEAR FLUID. SAFETY REMINDERS GIVEN. ON LOW BED WITH BILATERAL UPPER SIDE RAILS UP. CALL FORMAN WITHIN EASY REACH. WILL CONTINUE TO MONITOR.
[2017-05-16 20:00] VITALS: BP 97/55
[2017-05-16] MEDS: ENOXAPARIN SODIUM 40 MG/0.4 ML DISP.SYRIN SQ SCH (20:23)
--- NOTE | 2017-05-16 20:57 | NUR ---
RN NOTES DR. TONJA Pa MADE AWARE THAT PATIENT IS AO X 3, AFEBRILE; WITH NO ACUTE DISTRESS. LACTIC ACID REDRAWN, WAITING FOR RESULT. DR. EVANGELISTA GAVE ORDER TO D/C TRANSFER TO [facility] AND TO REMAIN IN 3 WEST UNDER TELE; NOTED AND CARRIED OUT. PATIENT MADE AWARE.
--- NOTE | 2017-05-16 21:24 | NUR ---
RN NOTES LACTIC ACID 4.[address] EVANGELISTA WITH NEW ORDER TO TRANSFER PATIENT TO [facility] AND ADMINISTER NS 80 ML/HOUR; NOTED AND CARRIED OUT. PATIENT MADE AWARE.
[2017-05-16] MEDS ORDERED: IV NS 0.9% 1,000 ML IV ONE (21:30)
[2017-05-16] MEDS: MIRTAZAPINE 15 MG TABLET PO SCH (22:19)
--- NOTE | 2017-05-16 22:35 | NUR ---
RN NOTES REPORT GIVEN TO SAM MINER FOR FOR CONTINUITY OF CARE
[2017-05-16] MEDS: ZOLPIDEM TARTRATE 5 MG TABLET PO PRN (22:44)
--- NOTE | 2017-05-16 23:00 | NUR ---
RN NOTES PATIENT TRANSFERRED TO [facility] ROOM 103 VIA ACLS PROTOCOL; RECEIVED BY SAM MINER. PATIENT'S DAUGHTER OVIDIO NOTIFIED.
--- NOTE | 2017-05-16 23:05 | NUR ---
[facility]/RN RECEIVED PT. FORM 3WEST VIA BED TO ROOM 103,PT AWAKE ALERT OX3.DENIES PAIN OR DISCOMFORT,OFFERS NO COMPLAINTS.IVF OF NS INFUSING VIA RT.UPPER ARM AT 80ML/HR.
[2017-05-16 23:06] VITALS: BP 112/64
[2017-05-17] VITALS (8 sets, daily range): BP systolic 94–117; BP diastolic 49–72
[2017-05-17] MEDS: ZOSYN IVPB 3.375 G in IV D5W 50ml IV SCH ×5 (00:05→23:37)
--- NOTE | 2017-05-17 01:00 | NUR ---
[facility]/RN PT SOUND ASLEEP,W/REGULAR RESPIRATIONS.PT.RECEIVED AMBIEN EARLIER.MONITOR SHOWS SI W/OUT ECTOPICS.
[2017-05-17] MEDS: ALBUTEROL FS 2.5 MG/3 ML VIAL.NEB NEB SCH ×4 (02:48→20:21)
[2017-05-17] MEDS: IPRATROPIUM NEB FS 0.5 MG/2.5 ML AMPUL.NEB NEB SCH ×4 (02:48→20:21)
--- NOTE | 2017-05-17 04:00 | NUR ---
[facility]/RM VS STABLE.MONITO NSR.OFFERS NO COMPLAINTS.SLEEPING BUT AROUSES EASILY.
[2017-05-17] MEDS: CLOTRIMAZOLE 10 MG TROCHE MM SCH ×5 (06:56→20:03)
--- NOTE | 2017-05-17 07:10 | NUR ---
RN NOTES RECEIVED PATIENT ON BED, A/Ox3, MASHPEE ON RIGHT EAR, RESPIRATION EVEN AND UNLABORED, ON 2L O2 N/C NO SOB NOTED, ON TELE SR HR IN 80'S , R UPPER ARM MIDLINE CDI, WITH NS AT 80CC/HR RUNNING , UROSTOMY BAG INTACT; DRAINING CLEAR FLUID. SR UPx3, CALL LIGHT WITHIN EASY REACH, BED LOCKED AND IN LOWEST POSITION , WILL CONTINUE TO MONITOR.
--- NOTE | 2017-05-17 07:23 | NUR ---
[facility]/RN REPORT AND CARE OF PT.GIVEN TO APRIL MINER
--- NOTE | 2017-05-17 07:25 | NUR ---
[facility]/ISIDRA REPORT AND CARE OF PT GIVEN TO APRIL MINER Addendum: 05/17/17 at 3546 by SAM WALDROP RN DISREGARD ABOVE CHARTING
[2017-05-17] MEDS: BLOOD SUGAR DIAGNOSTIC 1 EACH STRIP IN SCH ×4 (07:30→22:08)
[2017-05-17] MEDS: GABAPENTIN 300 MG CAPSULE PO SCH ×3 (08:52→22:07)
[2017-05-17] MEDS: methylPREDNISolone SOD SUCC 125 MG/2ML VIAL IV SCH (08:52)
[2017-05-17] MEDS: INSULIN REGULAR, HUMAN 100 UNIT/ML 3 ML VIAL SQ PRN ×3 (08:52→17:04)
[2017-05-17] MEDS: BENZONATATE 100 MG CAPSULE PO SCH ×3 (08:52→17:02)
[2017-05-17] MEDS: HYDROGEL DRESSING 90 GM TUBE TP PRN (08:53)
[2017-05-17] MEDS: HYDROGEL DRESSING 90 GM TUBE TP SCH (08:53)
[2017-05-17] MEDS: predniSONE 20 MG TABLET PO SCH (11:30)
[2017-05-17 11:40] LABS: CALCIUM, SERUM 8.6 mg/dL (8.5-10.1); CARBON DIOXIDE 27 mmol/L (21-32); CHLORIDE 110 mmol/L (98-107); CREATININE 0.6 mg/dL (0.6-1.3); GLUCOSE 206 mg/dL (74-106); MAGNESIUM 1.7 mg/dL (1.8-2.4); PHOSPHORUS 2.5 mg/dL (2.5-4.9); POTASSIUM 3.1 mmol/L (3.5-5.1); SODIUM SERUM 145 mmol/L (136-145); UREA NITROGEN, BLOOD 10 mg/dL (7-18)
--- NOTE | 2017-05-17 12:00 | NUR ---
RN NOTES PT AT REST , MARISA ANY DISTRESS , SUPPORTIVE FAMILY AT THE BEDSIDE,
[2017-05-17 12:27] LABS: BASOPHILS % (AUTO) 0.1 % (0.0-2.0); EOSINOPHILS % (AUTO) 0.1 % (0.0-6.0); HEMATOCRIT 31 % (33-45); LYMPHOCYTES # (AUTO) 0.5 /CMM (0.8-4.8); LYMPHOCYTES % (AUTO) 5.3 % (20.0-44.0); MEAN CORPUSCULAR HEMOGLOBIN 27 PG (26.0-33.0); MEAN CORPUSCULAR HGB CONC 32 g/dl (31.0-36.0); MEAN CORPUSCULAR VOLUME 83 fL (82-100); MONOCYTES # (AUTO) 0.5 /CMM (0.1-1.30); MONOCYTES % (AUTO) 4.9 % (2.0-12.0); NEUTROPHILS # (AUTO) 8.6 /CMM (1.8-8.9); NEUTROPHILS % (AUTO) 89.6 % (43.0-81.0); PLATELET COUNT (AUTO) 220 /CMM (150-450); RDW COEFFICIENT OF VARIATION 18.5 (11.5-15.0); RED BLOOD CELL COUNT(AUTO) 3.71 MIL/uL (4.0-5.2); WHITE BLOOD COUNT (AUTO) 9.6 K/uL (4.3-11.0)
[2017-05-17] MEDS: POTASSIUM CHLORIDE 20 MEQ TAB.PRT.SR PO SCH ×2 (14:29→15:34)
[2017-05-17] MEDS: Magnesium 1GM/D5W 100ML PREMIX 100 ML IV SCH ×2 (14:30→15:34)
[2017-05-17] MEDS: LEVOFLOXACIN 500 MG /D5W 100ML 500 MG in PREMIX 1 EA IV SCH (15:12)
[2017-05-17] MEDS: LACTOBACILLUS RHAMNOSUS GG 1 EACH CAP.SPRINK PO SCH (17:02)
--- NOTE | 2017-05-17 18:52 | NUR ---
RN NOTES RESPIRATION EVEN AND UNLABORED, UROSTOMY BAG INTACT DRAINING WITH YELLOW CLOUDY URINE , SR UP x3, CALL LIGHT WITHIN EASY REACH, WILL ENDORSE TO SERVICES MGR RN FOR AMADOR.
--- NOTE | 2017-05-17 19:22 | NUR ---
RN NOTE RECEIVED CRITICAL LAB VALUE LACTIC ACID 2.9 (FROM SHAUN), IMIDIATELLY NOTIFIED OSWALDO MINER PRIMARY NURSE FOR THE PATIENT
--- NOTE | 2017-05-17 19:25 | NUR ---
TELE/RN NOTES CRITICAL LAB REPORTED TO FLEX O WRITER OPERATOR DR. EVANGELISTA FOR ELEVATED LACTIC ACID AT 2.9 PREVIOUS LACTIC WAS 4.3 MD ORDER TO COMTINUE WITH IV HYDRATION AND MONITORING.
--- NOTE | 2017-05-17 19:40 | NUR ---
tele/rn notes tele monitoring AT 113, NO PAIN VERBALIZED, FAMILY AT BEDSIDE, REPORTED SOME ABDOMINAL DISCOMFORT FOR DYSPEPSIA, WITH NEEDED MED TO ADMINISTER PER PATIENT REQUEST.
[2017-05-17] MEDS: MAG HYDROX/AL HYDROX/SIMETH 30 ML UDC PO PRN (19:45)
[2017-05-17] MEDS ORDERED: IV NS 0.9% 1,000 ML BAG IV PRN (20:00)
--- NOTE | 2017-05-17 20:00 | NUR ---
TELE/RN OPENING NOTES RECEIVED PATIENT IN BED, HOB ELEVATED, RESPIRATIONS EVEN AN UNLABORED WITH OXYGEN VIA NC AT 2L, FAMILY WAS AT BEDSIDE, VERBALIZE ABDOMINAL DYSPEPSIA , ALERT, ORIENTED X3. CADDO AT LEFT SIDE, SKIN WARM TO TOUCH, WITH UROSTOMY BAG, IV HYDRATION ON GARCIA. WILL CONTINUE TO MONITOR.
[2017-05-17] MEDS: ENOXAPARIN SODIUM 40 MG/0.4 ML DISP.SYRIN SQ SCH (20:04)
[2017-05-17] MEDS ORDERED: IV NS 0.9% 1,000 ML IV PRN (20:30)
[2017-05-17] MEDS: MIRTAZAPINE 15 MG TABLET PO SCH (22:07)
[2017-05-17] MEDS: ZOLPIDEM TARTRATE 5 MG TABLET PO PRN (22:39)
--- NOTE | 2017-05-17 22:40 | NUR ---
tele/rn notes PATIENT REPORT INABILITY TO SLEEP REQUESTED AMBIEN 5MG PO NEEDED.
[2017-05-17 22:57] LABS: BILIRUBIN,TOTAL 0.1 mg/dL (0.2-1.0)
--- NOTE | 2017-05-17 23:04 | NUR ---
TELE/RN NOTES RECEIVED CRITICAL LAB LACTICTIC ACID AT 2.7. WILL REPORT TO MD BUSINESS SERVICES ASSOCIATE .
[2017-05-18 01:00] VITALS: BP 124/74
[2017-05-18] MEDS ORDERED: CODEINE/PROMETHAZINE HCL 5 ML UDC ONE (01:04)
--- NOTE | 2017-05-18 01:20 | NUR ---
TELE/RN NOTES PATIENT HAVING COUGH, REQUESTED FOR NEEDED COUGH MEDICINE, INFORM CHARGE NURSE FOR MEDICATION NOT AVAILABLE IN [facility],RECEIVED
[2017-05-18] MEDS: ALBUTEROL FS 2.5 MG/3 ML VIAL.NEB NEB SCH ×3 (01:31→14:15)
[2017-05-18] MEDS: IPRATROPIUM NEB FS 0.5 MG/2.5 ML AMPUL.NEB NEB SCH ×3 (01:31→14:15)
[2017-05-18 05:00] VITALS: BP 90/46
[2017-05-18] MEDS: ZOSYN IVPB 3.375 G in IV D5W 50ml IV SCH ×3 (05:25→19:05)
[2017-05-18] MEDS: CLOTRIMAZOLE 10 MG TROCHE MM SCH ×4 (06:29→19:05)
[2017-05-18 06:30] LABS: BASOPHILS % (AUTO) 0.1 % (0.0-2.0); HEMATOCRIT 31 % (33-45); HEMOGLOBIN 9.8 g/dL (11.5-14.8); LYMPHOCYTES # (AUTO) 1.6 /CMM (0.8-4.8); LYMPHOCYTES % (AUTO) 11.1 % (20.0-44.0); MEAN CORPUSCULAR HEMOGLOBIN 27 PG (26.0-33.0); MEAN CORPUSCULAR HGB CONC 32 g/dl (31.0-36.0); MEAN CORPUSCULAR VOLUME 84 fL (82-100); MONOCYTES % (AUTO) 6.7 % (2.0-12.0); NEUTROPHILS # (AUTO) 11.6 /CMM (1.8-8.9); NEUTROPHILS % (AUTO) 82.1 % (43.0-81.0); PLATELET COUNT (AUTO) 244 /CMM (150-450); RDW COEFFICIENT OF VARIATION 18.4 (11.5-15.0); RED BLOOD CELL COUNT(AUTO) 3.64 MIL/uL (4.0-5.2); WHITE BLOOD COUNT (AUTO) 14.2 K/uL (4.3-11.0)
--- NOTE | 2017-05-18 06:34 | NUR ---
TELE/RN CLOSING NOTES PATIENT ABLE TO SLEEP DURING THE NIGHT WITH SLEEPING PILL REQUESTED, RESPIRATIONS EVEN AND UNLABORED, ABLE TO VERBALIZE NEEDS AT ALL TIMES, COOPERATIVE TO CARE, IV HYDRATION PER MD DUE TO ELEVATED LACTIC ACID AT 2.7, SKIN WA5RM TO TOUCH, IV ON SEVERO PATENT WITH NOS/S OF INFILTRATION. BED IN LOCK POSITION, CALL LIGHTS WITHIN REACH. WILL ENDORSE TO AM RN FOR AMADOR.
[2017-05-18 06:40] LABS: CALCIUM, SERUM 8.3 mg/dL (8.5-10.1); CARBON DIOXIDE 29 mmol/L (21-32); CHLORIDE 116 mmol/L (98-107); CREATININE 0.4 mg/dL (0.6-1.3); GLUCOSE 118 mg/dL (74-106); MAGNESIUM 2.4 mg/dL (1.8-2.4); POTASSIUM 3.9 mmol/L (3.5-5.1); SODIUM SERUM 150 mmol/L (136-145); UREA NITROGEN, BLOOD 13 mg/dL (7-18)
[2017-05-18 08:00] VITALS: BP 109/67
[2017-05-18] MEDS: GABAPENTIN 300 MG CAPSULE PO SCH ×2 (08:59→17:03)
[2017-05-18] MEDS: BLOOD SUGAR DIAGNOSTIC 1 EACH STRIP IN SCH ×3 (08:59→17:06)
[2017-05-18] MEDS: BENZONATATE 100 MG CAPSULE PO SCH ×3 (09:00→17:03)
[2017-05-18] MEDS: LACTOBACILLUS RHAMNOSUS GG 1 EACH CAP.SPRINK PO SCH ×2 (09:00→17:03)
[2017-05-18] MEDS: predniSONE 20 MG TABLET PO SCH (09:00)
[2017-05-18] MEDS: HYDROGEL DRESSING 90 GM TUBE TP PRN (09:02)
[2017-05-18] MEDS: HYDROGEL DRESSING 90 GM TUBE TP SCH (09:02)
[2017-05-18 12:00] VITALS: BP 118/69
[2017-05-18] MEDS ORDERED: PRED20TA PO (13:48)
[2017-05-18] MEDS ORDERED: BENZ-13 PO (13:48)
[2017-05-18] MEDS ORDERED: LEVO500T75 PO (13:50)
[2017-05-18] MEDS: LEVOFLOXACIN 500 MG /D5W 100ML 500 MG in PREMIX 1 EA IV SCH (15:50)
[2017-05-18 16:00] VITALS: BP 114/70
[2017-05-18] MEDS: MAG HYDROX/AL HYDROX/SIMETH 30 ML UDC PO PRN (17:03)
--- NOTE | 2017-05-18 19:57 | NUR ---
RN NOTE PT DISCHARGED HOME VIA AMBULANCE AWARE, DAUGHTER AWARE, PAPERS SIGNED AND GIVEN TO PT, BELONGINGS LIST SIGNED AND PROVIDED TO PT, MIDLINE REMOVED, UROSTOMY BAG INTACT, EMPTIED, ALL MEDS GIVEN PRIOR TO D/C, PRESCRIPTION LIST SENT TO [facility], AND PRESCRIPTION GIVEN TO PT, DISCHARGE INSTRUCTIONS GIVEN TO PT. PICTURES TAKEN PRIOR TO DISCHARGE AND PLACED IN CHART.
== END 2017-05-18 19:45 | disposition home or self-care (01) | DRG 196 ==
LOC: ER 12:27 → TELE 14:32 → MED 05-16 09:04 → TELE 05-16 16:32 → TELE-TD 05-16 23:22 → TELE1 05-17 09:49
PROVIDERS: ADMIT Internal Medicine; ATTEND Internal Medicine
PROC: 05H533Z Insertion of Infusion Device into Right Subclavian Vein, Percutaneous Approach (ICD-10-PCS; principal; 2017-05-15)
DX: J84.112 Idiopathic pulmonary fibrosis (principal); J96.21 Acute and chronic respiratory failure with hypoxia; E44.0 Moderate protein-calorie malnutrition; L89.153 Pressure ulcer of sacral region, stage 3; I11.0 Hypertensive heart disease with heart failure; I50.32 Chronic diastolic (congestive) heart failure; Z99.81 Dependence on supplemental oxygen; J44.9 Chronic obstructive pulmonary disease, unspecified; D63.8 Anemia in other chronic diseases classified elsewhere; E78.5 Hyperlipidemia, unspecified; Z86.711 Personal history of pulmonary embolism; Z90.710 Acquired absence of both cervix and uterus; Z87.01 Personal history of pneumonia (recurrent); E61.1 Iron deficiency; G89.29 Other chronic pain; Z86.718 Personal history of other venous thrombosis and embolism; Z87.891 Personal history of nicotine dependence; Z68.22 Body mass index [BMI] 22.0-22.9, adult; J20.9 Acute bronchitis, unspecified; L30.4 Erythema intertrigo; L98.8 Other specified disorders of the skin and subcutaneous tissue; J06.9 Acute upper respiratory infection, unspecified; M81.0 Age-related osteoporosis without current pathological fracture
CPT/HCPCS: 36415; 36600; 71045-TC; 80048-TC; 80061-TC; 80076-TC; 82247-TC; 82248-TC; 82728-TC; 82803-TC; 82962-TC; 83540-TC; 83605-TC; 83735-TC; 83880; 84100-TC; 84484-TC; 85025-TC; 85730-TC; 87040-TC; 87081-TC; 87400; 90732; 93307-TC; 94799-TC; A4216; A4606; A6248; J1650; J1815; J1956; J2543; J2930; J3475; J7030; J7050; J7060; Z7610